=== PATIENT | male | born 1950 | race Caucasian/White ===

== ENCOUNTER 2019-12-01 07:01 | Day surgery (SDC) | payer MEDICARE, OTHER ==
[~2019-12-01 07:01] MED LIST: Lactated Ringers 1,000 ML IV SCH
[2019-12-01] MEDS ORDERED: Lactated Ringers 0 ML IV ONE (08:00)
[2019-12-01] MEDS ORDERED: Sensorcaine 0.25% 10 ML ONE (08:00)
[2019-12-01] MEDS ORDERED: DIPRIVAN 200 MG/20 ML IV ONE (08:05)
[2019-12-01] MEDS ORDERED: SUBLIMAZE 100 MCG/2 ML ONE (08:05)
[2019-12-01] MEDS ORDERED: Zemuron 100 MG/10 ML ONE (08:05)
[2019-12-01] MEDS ORDERED: Quelicin Fliptop 200 MG/10 ML ONE (08:05)
--- NOTE | 2019-12-01 08:12 | HP ---
DATE OF SURGERY: 12/01/2019 HISTORY OF PRESENT ILLNESS: The patient is a 69 year-old with increasing in size, nonhealing lesion left neck. He had biopsies possible squamous cell carcinoma and it was felt he would benefit from wide excision incisional biopsy squamous cell carcinoma biopsy site as an outpatient left neck. PAST MEDICAL HISTORY: Hypertension. PAST SURGICAL HISTORY: Kidney stones in the past. Shave biopsy in the past. MEDICATIONS: Lisinopril hydrochlorothiazide. ALLERGIES: LEVAQUIN. FAMILY HISTORY: Hypertension, heart disease. SOCIAL HISTORY: He denied smoking or alcohol abuse. REVIEW OF SYSTEMS: Fourteen systems reviewed. No chest pain or palpitations other systems negative or noncontributory as above and per preadmission questionnaire. PHYSICAL EXAMINATION: GENERAL: No acute distress. HEENT: Sclerae nonicteric. NECK: No JVD. No thyromegaly. He does have left neck nonhealing lesion consistent with squamous cell carcinoma with recent biopsy. CHEST: Equal excursion, nonlabored breathing. CVS: Regular rate and rhythm. ABDOMEN: Soft. EXTREMITIES: No significant edema. NEURO: Alert, oriented, moving extremities symmetrically. No gross motor deficits noted. 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 Risks and benefits explained in detail including but not limited to bleeding or infection, risk of wound dehiscence possible requiring packing or healing by secondary intent, risk of involved margins possibly requiring other procedures down the road, general risk of anesthesia, deep venous thrombosis, pulmonary embolism or pneumonia but not limited to, will proceed with excisional biopsy of squamous cell carcinoma biopsy site left neck as an outpatient.
[2019-12-01] MEDS ORDERED: KEFZOL 1 GM ONE (08:25)
[2019-12-01] MEDS ORDERED: BRIDION 200MG/2ML IV ONE (08:36)
[2019-12-01] MEDS ORDERED: Zofran 4 MG/2 ML VIAL ONE (08:36)
[2019-12-01] MEDS ORDERED: TORAdol 30 mg Injection ONE (08:36)
[2019-12-01] MEDS ORDERED: Decadron 4 MG INJ ONE (08:36)
[2019-12-01 10:25] VITALS: O2SAT 95
[2019-12-01 10:27] VITALS: BP 139/86; PULSE 65
--- NOTE | 2019-12-01 10:35 | OP ---
SURGERY DATE/TIME: 12/01/2019 0817 PREOPERATIVE DIAGNOSIS: Squamous cell carcinoma biopsy site left neck in need of wide excision. POSTOPERATIVE DIAGNOSIS: Squamous cell carcinoma biopsy site left neck in need of wide excision. PROCEDURE: Excisional biopsy squamous cell biopsy site left neck (approximately 2.2 cm with margins). SURGEON: Dr. Gregory Pardo. ANESTHESIA: General. ESTIMATED BLOOD LOSS: Minimal. INDICATIONS: As noted above. Risks and benefits explained in detail and not limited to and consent obtained. DESCRIPTION OF PROCEDURE AND FINDINGS: The patient is taken to the operating room. General anesthesia induced. The site had been confirmed and marked in the preoperative area. He was prepped and draped in usual sterile fashion. After official time out and no disagreement with planned procedure, marking out to normal appearing skin as possible he had on either side of this, spindle-shaped excision pattern approximately 4 cm or so long dissecting down to normal appearing subcutaneous tissue beneath. The lesion itself was a little elongated. It measured about 2.2 cm with margins and passed off for pathology. The flaps are then mobilized back towards the midline in immediate closure fashion with interrupted 3-0 Vicryl to deep superficial subcu. Skin closed with 4-0 Vicryl. Skin closed with 4-0 Vicryl. Steri-Strips and sterile dressing applied. 0.25% Marcaine local injected along the area. The patient tolerated the procedure well. There were no immediate complications. There was no family available to discuss the findings with.
== END 2019-12-01 09:50 | disposition home or self-care (01) ==
LOC: SDC 07:01
PROVIDERS: ATTEND Surgery
DX: C44.42 Squamous cell carcinoma of skin of scalp and neck (principal); I10 Essential (primary) hypertension; Z79.899 Other long term (current) drug therapy
CPT/HCPCS: 93005; 99100; J0330; J0690; J1100; J1885; J2405; J2704; J3010

== ENCOUNTER 2022-07-02 20:35 | Emergency (ER) | payer MEDICARE, OTHER ==
[2022-07-02] MEDS ORDERED: Sodium Chloride 0.9% 1000 ML 1,000 ML IV STA (20:44)
[2022-07-02] MEDS ORDERED: CLONIDINE 0.1 MG TABLET PO ONE (20:44)
[2022-07-02] MEDS ORDERED: BABY ASPIRIN 81 MG CHEW PO ONE (20:44)
[2022-07-02] MEDS ORDERED: Sodium Chloride 0.9% 1000 ML 1,000 ML ONE (20:50)
[2022-07-02] MEDS ORDERED: BABY ASPIRIN 81 MG CHEW ONE (20:50)
[2022-07-02] MEDS ORDERED: CLONIDINE 0.1 MG TABLET ONE (20:50)
[2022-07-02 21:15] LABS: Absolute Neutrophil Ct (ANC) 9.04 x10^3/uL (1.4-6.9); Basophil (Absolute #) 0.06 x10^3/uL (0-0.4); Eosinophil % 0.8 % (0.00-5.0); Eosinophil (Absolute #) 0.09 x10^3/uL (0-0.5); Hematocrit 50.2 % (42-50); Hemoglobin 16.7 g/dL (12.5-18.0); Lymphocyte (Absolute #) 1.64 x10^3/uL (1.0-4.6); Lymphocytes % 14.3 % (24.0-44.0); Mean Cell Volume 92.6 fL (78-100); Mean Corpuscular Hemoglobin 30.8 pg (26-32); Mean Corpuscular Hgb Concent. 33.3 g/dL (32-36); Mean Platelet Volume 9.7 fL (7.5-11.0); Monocyte (Absolute #) 0.62 x10^3/uL (0.0-1.3); Monocytes % 5.4 % (0.0-12.0); Neutrophil % 78.7 % (36.0-66.0); Platelet Count 340 x10^3/uL (150-450); Red Blood Count 5.42 x10^6/uL (4.1-5.6); Red Cell Distribution Width 12.9 % (11.5-14.0); White Blood Count 11.5 x10^3/uL (4.0-10.5)
[2022-07-02 21:24] LABS: Appearance CLEAR (CLEAR); Bilirubin NEGATIVE (NEGATIVE); Dipstick done @ ? MAIN LAB; Glucose NEGATIVE (NEGATIVE); Ketones NEGATIVE (NEGATIVE); Nitrite NEGATIVE (NEGATIVE); Protein,Urine Dip NEGATIVE (Negative); RBC NEGATIVE Ery/ul (0-5); Urobilinogen 0.2 mg/dL (0-1)
[2022-07-02 21:26] LABS: Mucus SLIGHT /HPF (NEGATIVE); RBC 0-2 /HPF (0-2); WBC 0-2 /HPF (0-5)
[2022-07-02 21:31] LABS: D-DIMER QUANTITATIVE 0.22 mg/L (0.0-0.50); PROTIME 10.6 SECONDS (9.4-12.5); PTT 26.8 SECONDS (25.1-36.5)
[2022-07-02 21:36] LABS: Urine Cultured Indicated? NO
[2022-07-02 21:44] LABS: ALBUMIN 4.7 g/dL (3.5-5.0); ANION GAP 11.7 MEQ/L (5-15); BILIRUBIN,TOTAL 0.7 mg/dL (0.2-1.3); Calcium 9.8 mg/dL (8.4-10.2); Creatinine 1 1.37 mg/dL (0.66-1.25); EST GLOMERULAR FILTRATION RATE 54.1 ML/MIN; MAGNESIUM 2.1 mg/dL (1.6-2.3); NT PRO BNP 60.2 pg/mL (0-900); Potassium 3.8 mmol/L (3.5-5.1); Total Protein 8.1 g/dL (6.3-8.2)
[2022-07-02 22:49] LABS: INFLUENZA A NEGATIVE (NEGATIVE); INFLUENZA B NEGATIVE (NEGATIVE); RESPIRATORY SYNCTIAL VIRUS NEGATIVE (Negative); SARS-CoV-2 Xpert Express NEGATIVE (NEGATIVE)
[2022-07-02 23:03] VITALS: PULSE 80
--- NOTE | 2022-07-02 23:10 | ERPHSYRPT ---
- History of Present Illness Time Seen by Provider: 07/02/22 20:45 Historian: patient Exam Limitations: no limitations Patient Subjective Stated Complaint: pt states " I have been having chest pain that comes and goes since the end of may." Triage Nursing Assessment: Pt ambulatory to bed by self, pt alert and oriented x3, pt c/o chest pain that shoots to his left arm that comes and goes since 06/21/2022, pt hypertensive in triage, pt took 81 mg of aspirin this morning for his daily dose, pt does not take nitro, pt is on 2 blood pressure pills that he has taken today Physician History: Patient is a 71-year-old white male who presents with a complaint of chest pain on and off since 06/21/2022. The pain comes and goes and is not related to exertion at all he denies any shortness of breath nausea vomiting or diaphoresis he has risk factors which include family history and hypertension. Timing/Duration: today Activities at Onset: none Quality: throbbing Location: central Chest Pain Radiation: arm Severity of Pain-Max: moderate Severity of Pain-Current: mild Modifying Factors: Improves With: nothing Associated Symptoms: denies symptoms Prior Chest Pain/Cardiac Workup: no prior chest pain Nitro Today/Relief: no nitro taken today Aspirin Treatment Today: 81 mg x 1 Allergies/Adverse Reactions: levofloxacin [From Levaquin] Allergy (Verified 07/02/22 20:36) Muscle Aches "ached all over" Home Medications: Lisinopril/Hydrochlorothiazide [Lisinopril-Hctz 20-12.5 mg Tab] 1 each PO DAILY 11/19/19 [History] Amlodipine Besylate 2.5 mg PO DAILY 07/02/22 [History] Aspirin 81 gm Chew [Baby Aspirin 81 mg Chew] 81 mg PO DAILY 07/02/22 [History] Hx Tetanus, Diphtheria Vaccination/Date Given: No Hx Influenza Vaccination/Date Given: No Hx Pneumococcal Vaccination/Date Given: No Immunizations Up to Date: No Travel Risk - International Travel Have you traveled outside of the country in past 3 weeks: No - Coronavirus Screening Are you exhibiting any of the following symptoms?: No Close contact with a COVID-19 positive Pt in past 14-21 Days: No - Vaccine Status Have you recieved a Covid-19 vaccination: Yes [place] [employer]agger: Pfizer - Vaccination Dates Date of 2cond Vaccination (if applicable): 2019 - Review of Systems Constitutional: No Fever, No Chills Eyes: No Symptoms Ears, Nose, & Throat: No Symptoms Respiratory: No Cough, No Dyspnea Cardiac: Chest Pain, No Edema, No Syncope Abdominal/Gastrointestinal: No Abdominal Pain, No Nausea, No Vomiting, No Diarrhea Genitourinary Symptoms: No Dysuria Musculoskeletal: No Back Pain, No Neck Pain Skin: No Rash Neurological: No Dizziness, No Focal Weakness, No Sensory Changes Psychological: No Symptoms Endocrine: No Symptoms All Other Systems: Reviewed and Negative - Past Medical History Pertinent Past Medical History: Yes Neurological History: No Pertinent History ENT History: No Pertinent History Cardiac History: Hypertension Respiratory History: Other Endocrine Medical History: No Pertinent History Musculoskeletal History: No Pertinent History GI Medical History: No Pertinent History History: Other Psycho-Social History: No Pertinent History Male Reproductive Disorders: No Pertinent History Other Medical History: kidney stones, snores at night, squamous cell left neck "scraped off about middle of october" - Past Surgical History Past Surgical History: Yes Neuro Surgical History: No Pertinent History Cardiac: No Pertinent History Respiratory: No Pertinent History Gastrointestinal: No Pertinent History Genitourinary: Other Musculoskeletal: No Pertinent History Male Surgical History: No Pertinent History Other Surgical History: kidney stones, lesion at left neck "scraped off about two or three weeks ago" "it was cancer" - Social History Smoking Status: Never smoker Exposure to second hand smoke: No Drug Use: none Patient Lives Alone: No - Nursing Vital Signs Nursing Vital Signs: Initial Vital Signs Temperature 98.3 F 07/02/22 20:35 Pulse Rate 107 H 07/02/22 20:35 Respiratory Rate 22 07/02/22 20:35 Blood Pressure 162/109 07/02/22 20:35 O2 Sat by Pulse Oximetry 96 07/02/22 20:35 Pain Scale Pain Intensity 2 - Physical Exam General Appearance: mild distress, alert Eye Exam: PERRL/EOMI, eyes nml inspection Ears, Nose, Throat Exam: normal ENT inspection, moist mucous membranes Neck Exam: normal inspection, non-tender, supple, full range of motion Respiratory Exam: normal breath sounds, lungs clear, No respiratory distress Cardiovascular Exam: regular rate/rhythm, normal heart sounds Gastrointestinal/Abdomen Exam: soft, No tenderness, No mass Back Exam: normal inspection, No CVA tenderness, No vertebral tenderness Extremity Exam: normal inspection, normal range of motion Neurologic Exam: alert, oriented x 3, cooperative, normal mood/affect, sensation nml, No motor deficits Skin Exam: normal color, warm, dry SpO2: 96 - Course Nursing assessment & vital signs reviewed: Yes EKG Interpreted by Me: RATE ([id number]), Sinus Tach, Left [place] Deviation, NORMAL INTERVALS, NORMAL QRS, Non-specific ST Changes - Radiology Exams Chest X-ray Interpretation: Interpreted by me, Negative Ordered Tests: Active Orders 24 hr Category Date Time Status EKG-ER Only STAT Care 07/02/22 20:44 Active IV Insertion STAT Care 07/02/22 20:44 Active CHEST 1 VIEW (PORTABLE) Stat Exams 07/02/22 20:44 Taken AMYLASE Stat Lab 07/02/22 21:00 Completed CBC W DIFF Stat Lab 07/02/22 21:00 Completed CMP Stat Lab 07/02/22 21:00 Completed D-DIMER QUANTITATIVE Stat Lab 07/02/22 21:00 Completed LIPASE Stat Lab 07/02/22 21:00 Completed Lactic Acid Stat Lab 07/02/22 20:50 Completed MAGNESIUM Stat Lab 07/02/22 21:00 Completed NT PRO BNP Stat Lab 07/02/22 21:00 Completed PROTIME WITH INR Stat Lab 07/02/22 21:00 Completed PTT Stat Lab 07/02/22 21:00 Completed TROPONIN Q4H Lab 07/02/22 21:00 Completed TROPONIN Q4H Lab 07/03/22 00:45 Ordered TROPONIN Q4H Lab 07/03/22 04:45 Ordered UA W/RFX CULTURE Stat Lab 07/02/22 20:48 Completed Medication Summary Discontinued Medications Generic Name Dose Route Start Last Admin Trade Name Kim PRN Reason Stop Dose Admin Aspirin 324 mg 07/02/22 20:44 07/02/22 20:53 Aspirin 81 Mg Tab.Chew PO 07/02/22 20:45 324 mg STAT ONE Administration Aspirin Confirm 07/02/22 20:50 Aspirin 81 Mg Tab.Chew Administered 07/02/22 20:51 Dose 324 mg .ROUTE .STK-MED ONE Clonidine 0.1 mg 07/02/22 20:44 07/02/22 20:55 Clonidine Hcl 0.1 Mg Tablet PO 07/02/22 20:45 0.1 mg STAT ONE Administration Clonidine Confirm 07/02/22 20:50 Clonidine Hcl 0.1 Mg Tablet Administered 07/02/22 20:51 Dose 0.1 mg .ROUTE .STK-MED ONE Sodium Chloride 1,000 mls @ 999 mls/hr 07/02/22 20:44 07/02/22 20:53 Sodium Chloride 0.9% 1000 Ml IV 07/02/22 21:44 999 mls/hr .Q1H1M STA Administration Sodium Chloride Confirm 07/02/22 20:50 Sodium Chloride 0.9% 1000 Ml Administered 07/02/22 20:51 Dose 1,000 mls @ ud .ROUTE .STK-MED ONE Lab/Rad Data: Laboratory Result Diagrams 07/02/22 21:00 07/02/22 21:00 Laboratory Results 07/02/22 07/02/22 07/02/22 Range/Units 22:07 21:00 21:00 WBC (4.0-10.5) x10^3/uL RBC (4.1-5.6) x10^6/uL Hgb (12.5-18.0) g/dL Hct (42-50) % MCV (78-100) fL MCH (26-32) pg MCHC (32-36) g/dL RDW (11.5-14.0) % Plt Count (150-450) x10^3/uL MPV (7.5-11.0) fL Gran % (36.0-66.0) % Immature Gran % (Auto) (0.00-0.4) % Nucleat RBC Rel Count (0.00-0.1) % Eos # (Auto) (0-0.5) x10^3/uL Immature Gran # (Auto) (0.00-0.03) x10^3u/L Absolute Lymphs (auto) (1.0-4.6) x10^3/uL Absolute Monos (auto) (0.0-1.3) x10^3/uL Absolute Nucleated RBC (0.00-0.01) x10^3u/L Lymphocytes % (24.0-44.0) % Monocytes % (0.0-12.0) % Eosinophils % (0.00-5.0) % Basophils % (0.0-0.4) % Absolute Granulocytes (1.4-6.9) x10^3/uL Basophils # (0-0.4) x10^3/uL PT 10.6 (9.4-12.5) SECONDS INR 1.00 (0.8-3.0) APTT 26.8 (25.1-36.5) SECONDS D-Dimer 0.22 (0.0-0.50) mg/L Sodium (137-145) mmol/L Potassium (3.5-5.1) mmol/L Chloride (98-107) mmol/L Carbon Dioxide (22-30) mmol/L Anion Gap (5-15) MEQ/L BUN (9-20) mg/dL Creatinine (0.66-1.25) mg/dL Estimated GFR ML/MIN Glucose (74-106) mg/dL Lactic Acid (0.4-2.0) Calcium (8.4-10.2) mg/dL Magnesium (1.6-2.3) mg/dL Total Bilirubin (0.2-1.3) mg/dL AST (17-59) U/L ALT (0-50) U/L Alkaline Phosphatase (38-126) U/L Troponin I < 0.012 (0.000-0.034) ng/mL NT-Pro-B Natriuret Pep (0-900) pg/mL Serum Total Protein (6.3-8.2) g/dL Albumin (3.5-5.0) g/dL Amylase (30-110) U/L Lipase (23-300) U/L Urinalys Dipstick Clnc Urine Color (YELLOW) Urine Appearance (CLEAR) Urine pH (5-6) Ur Specific Lyman (1.005-1.025) POC Urine Protein Conf (Negative) Urine Ketones (NEGATIVE) Urine Nitrite (NEGATIVE) Urine Bilirubin (NEGATIVE) Urine Urobilinogen (0-1) mg/dL Urine Leukocytes (NEGATIVE) Urine WBC (Auto) (0-5) /HPF Urine RBC (Auto) (0-2) /HPF U Epithel Cells (Auto) (FEW) /HPF Urine Bacteria (Auto) (NEGATIVE) /HPF Urine RBC (0-5) Bharath/ul Urine Mucus (Auto) (NEGATIVE) /HPF Ur Culture Indicated? Urine Glucose (NEGATIVE) mg/dL Influenza Type A Ag NEGATIVE (NEGATIVE) Influenza Type B Ag NEGATIVE (NEGATIVE) RSV (PCR) NEGATIVE (Negative) SARS-CoV-2 (PCR) NEGATIVE (NEGATIVE) 07/02/22 07/02/22 07/02/22 Range/Units 21:00 21:00 20:50 WBC 11.5 H (4.0-10.5) x10^3/uL RBC 5.42 (4.1-5.6) x10^6/uL Hgb 16.7 (12.5-18.0) g/dL Hct 50.2 H (42-50) % MCV 92.6 (78-100) fL MCH 30.8 (26-32) pg MCHC 33.3 (32-36) g/dL RDW 12.9 (11.5-14.0) % Plt Count 340 (150-450) x10^3/uL MPV 9.7 (7.5-11.0) fL Gran % 78.7 H (36.0-66.0) % Immature Gran % (Auto) 0.3 (0.00-0.4) % Nucleat RBC Rel Count 0.0 (0.00-0.1) % Eos # (Auto) 0.09 (0-0.5) x10^3/uL Immature Gran # (Auto) 0.03 (0.00-0.03) x10^3u/L Absolute Lymphs (auto) 1.64 (1.0-4.6) x10^3/uL Absolute Monos (auto) 0.62 (0.0-1.3) x10^3/uL Absolute Nucleated RBC 0.00 (0.00-0.01) x10^3u/L Lymphocytes % 14.3 L (24.0-44.0) % Monocytes % 5.4 (0.0-12.0) % Eosinophils % 0.8 (0.00-5.0) % Basophils % 0.5 (0.0-0.4) % Absolute Granulocytes 9.04 H (1.4-6.9) x10^3/uL Basophils # 0.06 (0-0.4) x10^3/uL PT (9.4-12.5) SECONDS INR (0.8-3.0) APTT (25.1-36.5) SECONDS D-Dimer (0.0-0.50) mg/L Sodium 140 (137-145) mmol/L Potassium 3.8 (3.5-5.1) mmol/L Chloride 101 (98-107) mmol/L Carbon Dioxide 30 (22-30) mmol/L Anion Gap 11.7 (5-15) MEQ/L BUN 20 (9-20) mg/dL Creatinine 1.37 H (0.66-1.25) mg/dL Estimated GFR 54.1 ML/MIN Glucose 123 H (74-106) mg/dL Lactic Acid 2.1 H (0.4-2.0) Calcium 9.8 (8.4-10.2) mg/dL Magnesium 2.1 (1.6-2.3) mg/dL Total Bilirubin 0.70 (0.2-1.3) mg/dL AST 43 (17-59) U/L ALT 30 (0-50) U/L Alkaline Phosphatase 103 (38-126) U/L Troponin I (0.000-0.034) ng/mL NT-Pro-B Natriuret Pep 60.2 (0-900) pg/mL Serum Total Protein 8.1 (6.3-8.2) g/dL Albumin 4.7 (3.5-5.0) g/dL Amylase 106 (30-110) U/L Lipase 171 (23-300) U/L Urinalys Dipstick Clnc Urine Color (YELLOW) Urine Appearance (CLEAR) Urine pH (5-6) Ur Specific Lyman (1.005-1.025) POC Urine Protein Conf (Negative) Urine Ketones (NEGATIVE) Urine Nitrite (NEGATIVE) Urine Bilirubin (NEGATIVE) Urine Urobilinogen (0-1) mg/dL Urine Leukocytes (NEGATIVE) Urine WBC (Auto) (0-5) /HPF Urine RBC (Auto) (0-2) /HPF U Epithel Cells (Auto) (FEW) /HPF Urine Bacteria (Auto) (NEGATIVE) /HPF Urine RBC (0-5) Bharath/ul Urine Mucus (Auto) (NEGATIVE) /HPF Ur Culture Indicated? Urine Glucose (NEGATIVE) mg/dL Influenza Type A Ag (NEGATIVE) Influenza Type B Ag (NEGATIVE) RSV (PCR) (Negative) SARS-CoV-2 (PCR) (NEGATIVE) 07/02/22 Range/Units 20:48 WBC (4.0-10.5) x10^3/uL RBC (4.1-5.6) x10^6/uL Hgb (12.5-18.0) g/dL Hct (42-50) % MCV (78-100) fL MCH (26-32) pg MCHC (32-36) g/dL RDW (11.5-14.0) % Plt Count (150-450) x10^3/uL MPV (7.5-11.0) fL Gran % (36.0-66.0) % Immature Gran % (Auto) (0.00-0.4) % Nucleat RBC Rel Count (0.00-0.1) % Eos # (Auto) (0-0.5) x10^3/uL Immature Gran # (Auto) (0.00-0.03) x10^3u/L Absolute Lymphs (auto) (1.0-4.6) x10^3/uL Absolute Monos (auto) (0.0-1.3) x10^3/uL Absolute Nucleated RBC (0.00-0.01) x10^3u/L Lymphocytes % (24.0-44.0) % Monocytes % (0.0-12.0) % Eosinophils % (0.00-5.0) % Basophils % (0.0-0.4) % Absolute Granulocytes (1.4-6.9) x10^3/uL Basophils # (0-0.4) x10^3/uL PT (9.4-12.5) SECONDS INR (0.8-3.0) APTT (25.1-36.5) SECONDS D-Dimer (0.0-0.50) mg/L Sodium (137-145) mmol/L Potassium (3.5-5.1) mmol/L Chloride (98-107) mmol/L Carbon Dioxide (22-30) mmol/L Anion Gap (5-15) MEQ/L BUN (9-20) mg/dL Creatinine (0.66-1.25) mg/dL Estimated GFR ML/MIN Glucose (74-106) mg/dL Lactic Acid (0.4-2.0) Calcium (8.4-10.2) mg/dL Magnesium (1.6-2.3) mg/dL Total Bilirubin (0.2-1.3) mg/dL AST (17-59) U/L ALT (0-50) U/L Alkaline Phosphatase (38-126) U/L Troponin I (0.000-0.034) ng/mL NT-Pro-B Natriuret Pep (0-900) pg/mL Serum Total Protein (6.3-8.2) g/dL Albumin (3.5-5.0) g/dL Amylase (30-110) U/L Lipase (23-300) U/L Urinalys Dipstick Clnc MAIN LAB Urine Color YELLOW (YELLOW) Urine Appearance CLEAR (CLEAR) Urine pH 6.0 (5-6) Ur Specific Lyman 1.020 (1.005-1.025) POC Urine Protein Conf NEGATIVE (Negative) Urine Ketones NEGATIVE (NEGATIVE) Urine Nitrite NEGATIVE (NEGATIVE) Urine Bilirubin NEGATIVE (NEGATIVE) Urine Urobilinogen 0.2 (0-1) mg/dL Urine Leukocytes NEGATIVE (NEGATIVE) Urine WBC (Auto) 0-2 (0-5) /HPF Urine RBC (Auto) 0-2 (0-2) /HPF U Epithel Cells (Auto) NONE (FEW) /HPF Urine Bacteria (Auto) NONE (NEGATIVE) /HPF Urine RBC NEGATIVE (0-5) Bharath/ul Urine Mucus (Auto) SLIGHT A (NEGATIVE) /HPF Ur Culture Indicated? NO Urine Glucose NEGATIVE (NEGATIVE) mg/dL Influenza Type A Ag (NEGATIVE) Influenza Type B Ag (NEGATIVE) RSV (PCR) (Negative) SARS-CoV-2 (PCR) (NEGATIVE) - Progress Progress: improved Air Movement: good Blood Culture(s) Obtained: No Antibiotics given: Yes - Departure Departure Disposition: Home Clinical Impression: Bronchitis Condition: Stable Critical Care Time: No Referrals: JAMES KESSLER NP [Primary Care Provider] - Follow up/PCP as directed Instructions: Acute Bronchitis, Adult (DC) Prescriptions: Cephalexin Mh 500 mg [Keflex 500 mg] 500 mg PO TID #21 cap
[2022-07-02] MEDS ORDERED: KEFLEX 500 MG PO ONE (23:13)
[2022-07-02] MEDS ORDERED: KEFLEX 500 MG ONE (23:15)
[2022-07-02 23:26] VITALS: BP 126/80; O2SAT 95
--- NOTE | 2022-07-03 08:38 | XRAY ---
Indication: Chest pain. Comparison: None Portable apical lordotic chest demonstrates normal heart and lungs. Bony thorax intact with mild degenerative changes.
== END 2022-07-02 23:25 | disposition home or self-care (01) ==
LOC: ED 20:35
DX: J20.9 Acute bronchitis, unspecified (principal); R07.9 Chest pain, unspecified; I10 Essential (primary) hypertension; Z79.899 Other long term (current) drug therapy
CPT/HCPCS: 0241U; 36000; 36415; 71045; 80053; 81015; 82150; 83605; 83690; 83735; 83880; 84484; 85025; 85379; 85610; 85730; 93005; 96360; 99284; A9270-GY

== ENCOUNTER 2022-12-12 07:47 | Day surgery (SDC) | payer MEDICARE, OTHER ==
[2022-12-12] MEDS ORDERED: Epinephrine Preservative Free 1 MG/ML IJ ONE (07:48)
[2022-12-12] MEDS ORDERED: Lactated Ringers 1,000 ML IV ONE (07:54)
[2022-12-12] MEDS ORDERED: Ak-Dilate OPHTHALMIC*** 1.065 ML, Cyclogyl 1% OPHTH SOL 1.065 ML, OCUFEN OPHTH*** 0.435 ML OP ONE ×3 (08:00)
[2022-12-12] MEDS ORDERED: Lactated Ringers 1,000 ML IV SCH (08:00)
[2022-12-12] MEDS ORDERED: BETADINE 5% OPHTHALMIC 30 ML OP ONE (08:00)
[2022-12-12] MEDS ORDERED: TETRACAINE 0.5% STERI-UNIT SOL OP ONE ×2 (08:00)
[2022-12-12] MEDS ORDERED: cefUROXime sodium 0.005 GM in Sodium Chloride Flush 30 ML*** 0.5 ML IJ ONE (08:00)
[2022-12-12 08:11] VITALS: O2SAT 96
[2022-12-12] MEDS ORDERED: TOBRAMYCIN-DEXAMETH OPHTH SUSP OP ONE (10:00)
[2022-12-12] MEDS ORDERED: ACETAZOLAMIDE 250 MG TABLET PO ONE (10:00)
[2022-12-12] MEDS ORDERED: Zofran 4 MG/2 ML VIAL IV PRN (10:00)
[2022-12-12] MEDS ORDERED: DIPRIVAN 200 MG/20 ML IV ONE ×2 (10:33→10:48)
[2022-12-12 11:37] VITALS: BP 128/79; PULSE 57
== END 2022-12-12 11:44 | disposition home or self-care (01) ==
LOC: SDC 07:47
PROVIDERS: ATTEND Ophthalmology
DX: H25.811 Combined forms of age-related cataract, right eye (principal)
CPT/HCPCS: 99100; C1780; J0171; J2704; A9270-GY

== ENCOUNTER 2023-01-09 08:09 | Day surgery (SDC) | payer MEDICARE, OTHER ==
[~2023-01-09 08:09] MED LIST changes: +ACETAZOLAMIDE 250 MG TABLET PO ONE; +Ak-Dilate OPHTHALMIC*** 1.065 ML, Cyclogyl 1% OPHTH SOL 1.065 ML, OCUFEN OPHTH*** 0.435 ML OP ONE; +BETADINE 5% OPHTHALMIC 30 ML OP ONE; +TETRACAINE 0.5% STERI-UNIT SOL OP ONE; +Zofran 4 MG/2 ML VIAL IV PRN; +cefUROXime sodium 0.005 GM in Sodium Chloride Flush 30 ML*** 0.5 ML IJ ONE
[2023-01-09] MEDS ORDERED: Lactated Ringers 1,000 ML IV ONE (08:27)
[2023-01-09] MEDS ORDERED: TOBRAMYCIN-DEXAMETH OPHTH SUSP OP SCH (09:00)
[2023-01-09] MEDS ORDERED: SUBLIMAZE 100 MCG/2 ML ONE (11:20)
[2023-01-09] MEDS ORDERED: Xylocaine-Mpf 2% 5 Ml Vial ONE (11:20)
[2023-01-09] MEDS ORDERED: Versed 2 MG/2 ML Injection ONE (11:20)
[2023-01-09] MEDS ORDERED: DIPRIVAN 200 MG/20 ML IV ONE (11:20)
[2023-01-09 11:54] VITALS: O2SAT 93
[2023-01-09 12:00] VITALS: BP 111/80; PULSE 73
== END 2023-01-09 12:05 | disposition home or self-care (01) ==
LOC: SDC 08:09
PROVIDERS: ATTEND Ophthalmology
DX: H25.812 Combined forms of age-related cataract, left eye (principal)
CPT/HCPCS: C1780; J2250; J2704; J3010; A9270-GY